=== PATIENT | female | born 1975 | race Asian ===

== ENCOUNTER 2019-11-17 15:48 | Outpatient (CLI) | payer OTHER ==
--- NOTE | 2019-11-18 09:12 | Mammography Report ---
Reason: ROUTINE MAMMO Procedure Date: 11/17/2019 Accession Number: [id number] / [id number] Procedure: MGN - Screening Mammo Dig Bilat CPT Code: Final Report FULL RESULT: EXAM: Screening Mammo Dig Bilat DATE: 11/17/2019 4:06 PM CLINICAL HISTORY: Screening encounter. Family history of breast cancer in the mother at the age of 52. TECHNIQUE: (B) - Bilateral CC and MLO views were obtained. COMPARISON: 04/07/2016. PARENCHYMAL PATTERN: (D) - The breast(s) demonstrate(s) heterogeneously dense fibroglandular parenchyma. FINDINGS: There are no suspicious masses, calcifications, or areas of distortion. IMPRESSION: Negative examination. BI-RADS category 1. RECOMMENDATION: (ANNUAL) - Recommend routine annual screening mammography. BI-RADS CATEGORY: (1) - Negative. STANDARD QUALIFYING STATEMENTS: 1. This examination was not reviewed with the aid of Computer-Aided Detection (CAD). 2. A negative or benign imaging report should not preclude biopsy if clinically suspicious findings are present. 3. Dense breasts may obscure an underlying neoplasm. 4. This examination was reviewed without the aid of 3D breast imaging (tomosynthesis).
== END 2019-11-17 15:49 | disposition home or self-care (01) ==
LOC: DI.N 15:48
PROVIDERS: ATTEND Physician Assistant Medical
DX: Z12.31 Encounter for screening mammogram for malignant neoplasm of breast (principal); Z80.3 Family history of malignant neoplasm of breast
CPT/HCPCS: 77067

== ENCOUNTER 2019-11-18 14:23 | Outpatient (CLI) | payer OTHER | END 2019-11-18 14:24 | disposition home or self-care (01) | LOC: DI 14:23 | PROVIDERS: ATTEND Physician Assistant Medical | DX: R01.1 Cardiac murmur, unspecified (principal) | CPT/HCPCS: 93306 ==

== ENCOUNTER 2020-08-13 12:20 | Emergency (ER) | payer OTHER ==
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
[2020-08-13 14:48] VITALS: BP 117/77
== END 2020-08-13 15:05 | disposition home or self-care (01) ==
LOC: ED 12:20
DX: Z69.11 Encounter for mental health services for victim of spousal or partner abuse (principal)
CPT/HCPCS: 99281; 99284

== ENCOUNTER 2023-02-13 14:14 | Outpatient (CLI) | payer OTHER ==
--- NOTE | 2023-02-16 09:24 | Mammography Report ---
BILATERAL DIGITAL SCREENING MAMMOGRAM 3D/2D: 02/13/2023 CLINICAL: Routine screening. Mother with breast cancer. Comparison is made to exams dated: 11/17/2019 mammogram and 04/15/2016 mammogram - [facility]. Both breasts are heterogeneously dense, which may obscure small masses (category c / 51-75% glandular tissue). No significant masses, calcifications, or other findings are seen in either breast. There has been no significant interval change. IMPRESSION: NEGATIVE There is no mammographic evidence of malignancy. A 1 year screening mammogram is recommended. Based on Tyrer-Cuzick model (a risk assessment model), the patient's lifetime risk is 23.0% and her 1 0 year risk is 4.9%. If a patient has an elevated risk, a more comprehensive evaluation should be con sidered and/or a referral to a genetic counselor. The [employer] [employer], [employer], and NCCN Guidelines advise the consideration of Breast MRI as an adjunct to screening mammog ludy in patients whose "Lifetime risk to develop breast cancer" is 20% or higher. This exam was interpreted at Station ID: [id number]. NOTE: For mammograms, a report in lay terms will be sent to the patient. Approximately 15% of breast malignancies will not be visualized mammographically. In the management of a palpable breast mass, a negative mammogram must not discourage biopsy of a clinically suspicious lesion. Electronically Signed By: Tc [email or web address]:02/13/2023 17:03:10 letter sent: No_Letter ACR BI-RADS Category 1: Negative 3341F PARENCHYMAL PATTERN: (D) - The breast(s) demonstrate(s) heterogeneously dense fibroglandular parcheikhy chago. BI-RADS CATEGORY: (1) - 1 Mammogram [id number] 1 year screening LATERALITY: (B)
== END 2023-02-13 14:15 | disposition home or self-care (01) ==
LOC: DI 14:14
DX: Z12.31 Encounter for screening mammogram for malignant neoplasm of breast (principal); Z80.3 Family history of malignant neoplasm of breast

== ENCOUNTER 2023-11-24 15:29 | Outpatient (CLI) | payer OTHER ==
--- NOTE | 2023-11-24 17:42 | XRAY Report ---
PROCEDURE: Chest 2V INDICATIONS: PERSONAL HISTORY OF LATENT TUBERCULOSIS INFECTION TECHNIQUE: 2 views of the chest were acquired. COMPARISON: Chest x-ray 07/29/2022 FINDINGS: Surgical changes and devices: None. Lungs and pleura: No pleural effusions or pneumothorax. Lungs are clear. Mediastinum: Mediastinal contours appear normal. Heart size is normal. Bones and chest wall: No suspicious bony lesions. Overlying soft tissues appear unremarkable. IMPRESSION: No acute cardiopulmonary process. Reviewed by: Sidra Rosales MD on 11/24/2023 5:40 PM PST Approved by: Sidra Rosales MD on 11/24/2023 5:40 PM [facility] Station ID: [id number]
== END 2023-11-24 15:30 | disposition home or self-care (01) ==
LOC: DI.N 15:29
PROVIDERS: ATTEND Physician Assistant
DX: Z86.15 Personal history of latent tuberculosis infection (principal)